=== PATIENT | female | born 1970 ===

== ENCOUNTER 2021-11-23 10:08 | Day surgery (SDC) | payer OTHER ==
[~2021-11-23 10:08] MED LIST: Lactated Ringers 1,000 ML IV SCH
[2021-11-23] MEDS ORDERED: fentaNYL 100 MCG/2 ML SDV ONE (10:54)
[2021-11-23] MEDS ORDERED: Propofol 200 MG/20 ML SDV ONE (10:54)
== END 2021-11-23 15:48 | disposition home or self-care (01) ==
LOC: MW.SDS 10:08
PROVIDERS: ATTEND Surgery
DX: Z12.11 Encounter for screening for malignant neoplasm of colon (principal); Z88.0 Allergy status to penicillin; Z91.040 Latex allergy status; Z91.018 Allergy to other foods; Z91.011 Allergy to milk products; Z96.649 Presence of unspecified artificial hip joint; Z79.899 Other long term (current) drug therapy; Z98.890 Other specified postprocedural states
CPT/HCPCS: 45380; 81025; J2704; J7120; 00812; J3010